=== PATIENT | male | born 1980 | race African-American/Black ===

== ENCOUNTER 2016-11-18 13:15 | Emergency (ER) | payer BC, OTHER ==
[~2016-11-18] VITALS: Ht 185.4 cm; Wt 83.9 kg
[2016-11-18] MEDS ORDERED: MOBIC7.5 MG PO (13:45)
[2016-11-18] MEDS ORDERED: CYCLOBENZAPRINE5 MG PO (13:45)
[2016-11-18 14:24] VITALS: BP 121/68
== END 2016-11-18 13:46 | disposition home or self-care (01) ==
LOC: ER 13:15
DX: S16.1XXA Strain of muscle, fascia and tendon at neck level, initial encounter (principal); S39.012A Strain of muscle, fascia and tendon of lower back, initial encounter; F17.210 Nicotine dependence, cigarettes, uncomplicated; F10.99 Alcohol use, unspecified with unspecified alcohol-induced disorder; V49.9XXA Car occupant (driver) (passenger) injured in unspecified traffic accident, initial encounter; Y93.89 Activity, other specified; Y92.89 Other specified places as the place of occurrence of the external cause; Y99.8 Other external cause status